=== PATIENT | male | born 1965 | race Caucasian/White ===

== ENCOUNTER 2018-03-09 10:04 | Emergency (ER) | payer OTHER ==
[2018-03-09 10:15] VITALS: BMI 37.1
--- NOTE | 2018-03-09 11:09 | C.PDOC ---
History Of Present Illness 52 year old male presents to the ED complaining of itchy rash to glans penis for two or three days. Denies any pain, discharge, fever. Time Seen by Provider: 03/09/18 10:26 Chief Complaint (Nursing): Male Genitourinary History Per: Patient History/Exam Limitations: no limitations Onset/Duration Of Symptoms: Days (2-3) Current Symptoms Are (Timing): Still Present Associated Symptoms: denies: Fever Past Medical History Reviewed: Historical Data, Nursing Documentation, Vital Signs Vital Signs: Last Vital Signs Temp 98.7 F 03/09/18 10:15 Pulse 98 H 03/09/18 10:15 Resp 20 03/09/18 10:15 BP 126/82 03/09/18 10:15 Pulse Ox 98 03/09/18 10:15 - Medical History PMH: No Chronic Diseases Surgical History: No Surg Hx - [facility] Procedures OTHER SKIN & SUBQ I D (01/11/14) TETANUS TOXOID ADMINIST (01/11/14) Family History: States: No Known Family Hx - Social History Hx Tobacco Use: No Hx Alcohol Use: No Hx Substance Use: No - Immunization History Hx Tetanus Toxoid Vaccination: Yes Hx Influenza Vaccination: No Hx Pneumococcal Vaccination: No Review Of Systems Except As Marked, All Systems Reviewed And Found Negative. Constitutional: Negative for: Fever Genitourinary: Positive for: Rash. Negative for: Penile Discharge, Penile Pain Physical Exam - Physical Exam Appears: Non-toxic Skin: Warm, Dry Head: Normacephalic Eye(s): bilateral: Normal Inspection Nose: Normal Oral Mucosa: Moist Neck: Normal ROM Chest: Symmetrical Male Genital: No Circumcised, Other (papular rash and white discharge noted to the area of the glans penis. Minimal swelling noted to foreskin of penis. Foreskin able to retract back and forth without difficulty. ) Extremity: Normal ROM Neurological/Psych: Oriented x3, Normal Speech Gait: Steady ED Course And Treatment - Laboratory Results Result Diagrams: 03/09/18 10:45 03/09/18 10:45 O2 Sat by Pulse Oximetry: 98 (RA) Pulse Ox Interpretation: Normal Disposition - Disposition Referrals: [facility] [Outside] [facility] [Outside] Disposition: AGAINST MEDICAL ADVICE Disposition Time: 15:39 Condition: STABLE Additional Instructions: YOU MUST BE SEEN BY THE DOCTOR WITHIN 24-48 HOURS. RETURN IF WORSENED. Prescriptions: Ketoconazole 2% Cr [Nizoral] 60 gm EXT BID #3 tube metFORMIN [glucOPHAGE] 500 mg PO BID #60 tab Instructions: Hyperglycemia, Adult (DC) Forms: [employer] (Serbian) Print Language: POLISH - Clinical Impression Clinical Impression: Balanitis, Hyperglycemia - PA / APPLIED PSYCHOLOGY CHAIR / Resident Statement MD/DO has reviewed & agrees with the documentation as recorded. - Scribe Statement The provider has reviewed the documentation as recorded by the Scribe Catherine Bronson All medical record entries made by the [facility] were at my direction and pe rsonally dictated by me. I have reviewed the chart and agree that the record accurately reflects my personal performance of the history, physical exam, medical decision making, and the department course for this patient. I have also personally directed, reviewed, and agree with the discharge instructions and disposition.
[2018-03-09] MEDS ORDERED: Sodium Chloride 0.9% 1,000 ML IV ONE ×2 (11:18→14:02)
[2018-03-09 11:45] LABS: BASO # 0.1 K/uL (0.0-0.2); BASO % 1.1 % (0.0-2.0); EOS # 0.2 K/uL (0.0-0.7); EOS % 2.3 % (0.0-4.0); HEMOGLOBIN 14.8 g/dL (12.0-18.0); LYMPH # 1.4 K/uL (1.0-4.3); LYMPH % 18.7 % (20.0-40.0); MEAN CELL VOLUME 96.1 fL (80.0-94.0); MEAN CORPUSCULAR HEMOGLOBIN 32.7 pg (27.0-31.0); MEAN PLATELET VOLUME 8.2 fL (7.2-11.7); MONO # 0.5 K/uL (0.0-0.8); MONO % 7.3 % (0.0-10.0); NEUT # 5.1 K/uL (1.8-7.0); NEUT % 70.6 % (50.0-75.0); NRBC % 0.1 % (0.0-2.0); RBC 4.54 Mil/uL (4.40-5.90); RED CELL DISTRIBUTION WIDTH 13.5 % (11.5-14.5); WHITE BLOOD COUNT 7.2 K/uL (4.8-10.8)
[2018-03-09 11:48] LABS: URINE BILIRUBIN NEGATIVE (NEGATIVE); URINE BLOOD NEGATIVE (NEGATIVE); URINE CLARITY Clear (Clear); URINE COLOR Straw (YELLOW); URINE GLUCOSE (UA) 3+ mg/dL (Normal); URINE LEUKOCYTE ESTERASE NEG Leu/uL (Negative); URINE PROTEIN NEGATIVE (NEGATIVE); URINE UROBILINOGEN NORMAL mg/dL (0.2-1.0)
[2018-03-09 12:13] LABS: ALB/GLOB RATIO 1.1 (1.0-2.1); ALBUMIN 3.8 g/dL (3.5-5.0); ALT/SGPT 289 U/L (21-72); AST/SGOT 144 U/L (17-59); BLOOD UREA NITROGEN 16 mg/dL (9-20); GFR NON-AFRICAN AMERICAN > 60
[2018-03-09] MEDS ORDERED: (Novolin R) Insulin Human Regular 100 units/ml vial IVP STA (12:32)
[2018-03-09 12:43] VITALS: RESP 18
[2018-03-09] MEDS ORDERED: (Novolin R) Insulin Human Regular 100 units/ml vial ONE (12:48)
[2018-03-09] MEDS ORDERED: Sodium Chloride 0.9% 1,000 ML ONE (14:22)
[2018-03-09 15:41] VITALS: O2SAT 98
[2018-03-09 15:47] VITALS: BP 130/87; PULSE 81; TEMP 99.1
== END 2018-03-09 15:45 | disposition left against medical advice (07) ==
LOC: C.ER 10:04
DX: N48.1 Balanitis (principal); R73.9 Hyperglycemia, unspecified
CPT/HCPCS: 80053; 81001; 82948; 85025; 87086; 96361; 96374; 99285; J7030